=== PATIENT | male | born 1955 | race Caucasian/White ===

== ENCOUNTER → 2024-11-30 12:27 | Outpatient (REF) | payer MEDICARE, OTHER, SELFPAY | LOC: SDSPAT 12:27 | PROVIDERS: ATTENDING PHYSICIAN Surgery; FAMILY PHYSICIAN Family Medicine | DX: K42.9 Umbilical hernia without obstruction or gangrene (principal) | CPT/HCPCS: 36415; 93005 ==

== ENCOUNTER 2024-12-14 05:54 | Day surgery (SDC) | payer MEDICARE, OTHER, SELFPAY ==
[2024-11-30 13:28] VITALS: BMI 25.9
[2024-12-14 06:12] VITALS: BMI 25.9
[2024-12-14 06:14] VITALS: BP 138/91
[2024-12-14] MEDS: TYLENOL 1000 MG PO (06:26)
[2024-12-14] MEDS: NORMOSOL-R/PLASMALYTE-A 1000 IV (06:26)
--- NOTE | 2024-12-14 06:38 | HP.FOC2 ---
Focused History & Physical
Chief Complaint
HPI:
Chief Complaint: Umbilical hernia
HPI / Indication for Planned Procedure: 69-year-old male with a history of swelling in the umbilical region. More prominent with exercise or abdominal exertion. Awareness of the hernia being present but no significant pain or discomfort.
Relevant Past Medical History: Other (Gout, high cholesterol)
Relevant Social History: Negative
Relevant Family History: Negative
Relevant Past Surgical History: Positive for (Bilateral knee surgery, left Achilles repair)
Review of Systems
Review of Pertinent Systems: All Systems Negative
Medication
See Medication form for detailed medications: Yes
Medication List (including Herbals & OTC):
allopurinol 300 mg tablet 300 mg PO DAILY 12/07/24
ipratropium bromide 42 mcg (0.06 %) nasal spray 2 spray intranasal HS 12/07/24
multivitamin 1 tab PO DAILY 12/07/24
simvastatin 20 mg tablet 20 mg PO QPM 12/07/24
Medications Reviewed: Yes
Allergies and Reactions
Patient has Allergies: No
Noted Allergies and Reactions:
Allergy/AdvReac Type Severity Reaction Status Date / Time
No Known Allergies Allergy Unverified 12/14/24 06:12
Pertinent Physical Exam
All Other Systems: Negative
Head/Neck: Normal
Lungs: Normal
Heart: Normal
Abdomen: Other (Soft, reducible umbilical hernia, fascial defect 2 to 3 cm)
Extremities: Normal
Neurological: Normal
Diagnosis / Assessment
69-year-old male presenting for scheduled operative correction symptomatic umbilical hernia
Plan / Procedure
Open umbilical herniorrhaphy with mesh
Anesthesia/Sedation to be done by Anesthesia Provider: Yes
--- NOTE | 2024-12-14 06:40 | W.SUR.PREOP ---
Pre-Operative Surgical Note
-
I have examined this patient prior to the performance of the scheduled procedure.
The patient's condition is unchanged from the time of the current History and
Physical and the patient is able to undergo the scheduled procedure.
--- NOTE | 2024-12-14 07:49 | W.IMMPOSTOP ---
Addendum entered and electronically signed by Kal Hahn MD 12/14/24 07:56:
#[id number]
Original Note:
Surgical Immed Post Op Note
-
Primary Surgeon: Kal Hahn MD
Assisting Surgeon: Nettie Reyes PA-C
Pre-op Diagnosis: Umbilical hernia
Post-op Diagnosis: Umbilical hernia, 3 cm
Procedure Performed: Open umbilical herniorrhaphy with mesh; Ventralex ST 8 cm round
Anesthesia Type: MAC +1% lidocaine/0.25% Marcaine with epinephrine
Specimen / Cultures: None
Estimated Blood Loss: 4 mL
Complications: None immediate
Operative Findings: Reducible umbilical hernia, 3 cm fascial defect. Underlay preperitoneal mesh repair, Ventralex ST 8 cm round. Closure of fascial defect with 0 PDS suture.
The assistance of Nettie Reyes PA-C was required due to the complexity of the procedure. During the procedure Nettie Reyes PA-C assisted with tissue retraction for exposure and closure of the incision site.
[2024-12-14 07:54] VITALS: BP 116/75
[2024-12-14 08:00] VITALS: BP 128/84
[2024-12-14 08:15] VITALS: BP 126/75
[2024-12-14 08:30] VITALS: BP 125/81
== END 2024-12-14 08:45 | disposition home or self-care (01) ==
LOC: SDS 05:54
PROVIDERS: ATTENDING PHYSICIAN Surgery; FAMILY PHYSICIAN Family Medicine
DX: K42.9 Umbilical hernia without obstruction or gangrene (principal)
CPT/HCPCS: 49593; C1781